=== PATIENT | male | born 1960 | race African-American/Black ===

== ENCOUNTER 2019-12-18 16:00 | Emergency (ER) | payer SELFPAY ==
[2019-12-18 16:37] LABS: Hemoglobin 15.4 g/dL (14.0-18.0); Mean Corpuscular HGB CONC 31.9 g/dL (32.0-36.0); Mean Corpuscular Volume 97.4 fL (78.0-98.0); Mean Platelet Volume 6.6 fL (7.4-10.4); Platelet Count 213 thou/uL (130-400); RBC Distribution Width 13.2 % (11.5-14.5); Red Blood Cell (RBC) Count 4.97 mill/uL (4.70-6.10); White Blood Cell (WBC) Count 2.9 thou/uL (4.8-10.8)
[2019-12-18 16:41] LABS: ALT (SGPT) 26 U/L (8-55); AST (SGOT) 86 U/L (5-34); Albumin 4.4 g/dL (3.5-5.0); Alkaline Phosphatase 82 U/L (40-110); Anion Gap 18 mmol/L (10-20); BUN (Urea Nitrogen) 8 mg/dL (8.4-25.7); Bilirubin, Total 0.8 mg/dL (0.2-1.2); Calc. Creatinine Clearance 0 mL/min (70-130); Calcium 9.8 mg/dL (7.8-10.44); Carbon Dioxide 28 mmol/L (22-29); Chloride 97 mmol/L (98-107); Estimated GFR-MDRD Greater than 90; Globulin 4.6 g/dL (2.4-3.5); Glucose 124 mg/dL (70-105); Potassium 4.3 mmol/L (3.5-5.1); Sodium 139 mmol/L (136-145)
--- NOTE | 2019-12-18 17:05 | CT ---
NONCONTRAST CT HEAD: 12/18/19 HISTORY: Headache, hypertension. Generalized weakness. COMPARISON: None. FINDINGS: There are areas of diminished attenuation of the periventricular white matter which are nonspecific b ut likely reflective of chronic small vessel ischemic changes. This does appear mildly progressed for patient's age. There is no evidence of an acute cortical infarction, hemorrhage, mass effect or midl ine shift. Mild cerebral volume loss is present. The ventricular system is normal in size, shape and position. Mucosal thickening is present within the limited visualized left maxillary antrum. Mastoid air cells are clear. Calvarial structures have a normal appearance. IMPRESSION: 1. No acute intracranial abnormalities demonstrated. 2. Chronic small vessel ischemic changes and cerebral volume loss. 3. Mucosal thickening left maxillary antrum with thickening of the montiel of the maxillary antrum which may be attributable to chronic sinusitis. POS: ANUPAM
[2019-12-18 17:20] LABS: Eosinophils 2 % (0-10); Lymphocytes 43 % (21-51); MDiff Complete? YES; Monocytes 9 % (0-10); Neutrophil 45 % (42-75); RBC Morphology Normal
[2019-12-18] MEDS ORDERED: Aspirin Chewable 81 MG TAB ONE (17:26)
[2019-12-18] MEDS ORDERED: Lisinopril 10 MG TAB ONE (17:26)
[2019-12-18 17:43] LABS: CK (CPK) 236 U/L (30-200)
== END 2019-12-18 17:30 | disposition home or self-care (01) ==
LOC: NAV ERS 16:00
DX: I10 Essential (primary) hypertension (principal); R51 Headache; F17.210 Nicotine dependence, cigarettes, uncomplicated
CPT/HCPCS: 70450; 80053; 82550; 84484; 85025; 93005